=== PATIENT | male | born 1970 | race Caucasian/White ===

== ENCOUNTER 2017-06-27 12:24 | Day surgery (SDC) | payer OTHER ==
[2017-06-23 10:43] LABS: BASO % 0.6 %; BASO ABS # 0.04 K/uL (0-0.2); COMPLETE YES; EOS % 4.9 %; HEMATOCRIT 49.5 % (42-52); IG% 0.2 %; LYMPH % 40.6 %; MEAN CELL VOLUME 85.1 fL (80-100); MEAN CORPUSCULAR HEMOGLOBIN 28.7 pg (25-34); MEAN CORPUSCULAR HGB CONC 33.7 g/dl (32-36); MEAN PLATELET VOLUME 12.1 fL (7.4-10.4); MONO % 9.6 %; NEUT % 44.1 %; PLATELET COUNT 187 K/uL (130-400); RED BLOOD COUNT 5.82 M/uL (4.7-6.1); WHITE BLOOD COUNT 6.16 K/uL (4.8-10.8)
[2017-06-23 11:18] LABS: BLOOD UREA NITROGEN 17 mg/dl (7-18); CALCIUM 9.2 mg/dl (8.5-10.1); CARBON DIOXIDE 27 mmol/L (21-32); CHLORIDE 104 mmol/L (98-107); CREATININE 1.07 mg/dl (0.60-1.40); GLUCOSE 83 mg/dl (70-99); POTASSIUM 3.7 mmol/L (3.5-5.1); SODIUM 139 mmol/L (136-145)
[2017-06-24 15:23] VITALS: BMI 33.0
--- NOTE | 2017-06-26 18:48 | HISTORY & PHYSICAL EXAMINATION ---
DATE OF ADMISSION: 06/27/2017 HISTORY AND PHYSICAL ADMISSION NOTE CHIEF COMPLAINT: High grade partial thickness left rotator cuff tear. HISTORY OF PRESENT ILLNESS: Eduard is a pleasant 47-year-old male who injured his left shoulder about 3 months ago while working on a vehicle for [employer]. MRI showed a very high grade partial thickness rotator cuff tear. After failing conservative treatment including injections, he elected to proceed with arthroscopy. PAST MEDICAL HISTORY: Significant for asthma and chronic sinusitis. PAST SURGICAL HISTORY: Significant for sinus surgeries, hiatal hernia repair, lymph nodes excision. ALLERGIES: None. MEDICATIONS: Include ranitidine, Nasonex, TobraDex, Protonix and desonide. FAMILY HISTORY: Noncontributory. SOCIAL HISTORY: He is . He has 1 or 2 drinks a day. Denies any alcohol or IV drug use. Moderately active and has 3 kids. REVIEW OF SYSTEMS: He complains of left shoulder pain. All other pertinent review of systems is negative. PHYSICAL EXAMINATION: GENERAL: He is awake, alert and oriented x3. He is in no apparent distress. He is very pleasant. HEENT: Pupils are equal, round and reactive to light. Extraocular motion intact. Oral mucosa is pink and moist. HEART: Regular rate per radial pulse. LUNGS: Snow symmetrically bilaterally with no audible breath sounds. ABDOMEN: Soft, nontender, nondistended. MUSCULOSKELETAL: On physical examination of the left shoulder, he has full active range of motion. He has 4+/5 muscle strength with a full can testing, 5/5 muscle strength with external rotation. Negative bear hug test. He has tenderness to palpation in the far anterior lateral subacromial space. No AC joint pain. Very mild biceps tenderness. IMAGING DATA: MRI reviewed of the shoulder does show a high grade interstitial tear of the far anterior supraspinatus. IMPRESSION: Left supraspinatus tendon tear. PLAN: Will proceed with arthroscopy to include small rotator cuff repair and acromioplasty. Postoperatively, he will be placed in an arm sling, given oral pain medications and discharged to home.
[~2017-06-27] VITALS: Ht 185.4 cm; Wt 115.9 kg
[~2017-06-27 12:24] MED LIST: ACETAMINOPHEN 500 MG TAB PO SCH; AFRINWC NAE; BUPIVACAINE 0.5 % 5 MG/1 ML PF 10ML VIAL ONE; CEFAZOLIN 2000MG IV PUSH 10 ML IV SCH; CLONIDINE HCL 100 MCG/ML SYRINGE ONE; CLOT1CRE TOP; DEXAMETHASONE SOD INJ 4 MG/ML VIAL ONE; FLUT0.15 INTNAS; IBUP-1459 PO; LACTATED RINGER'S 1000ML 1,000 ML IV SCH; LACTATED RINGER'S 1000ML IV SCH; PHEN-905 PO; PSEU30TA20 PO; ROPIVACAINE 0.5% 5 MG/ML 30 ML VIAL ONE; SALI0.6510 INTNAS; VNTHFA/IN INH; ZNTT/150 PO
[2017-06-27] MEDS ORDERED: TYLOTC500 PO (12:44)
[2017-06-27 12:51] VITALS: BP 154/98; PULSE 59; TEMP 36.6; O2SAT 97; Ht 185.4 cm; Wt 115.9 kg
[2017-06-27] MEDS ORDERED: MIDAZOLAM HCL 1 MG/ML 2ML VIAL ONE ×2 (14:42→15:14)
--- NOTE | 2017-06-27 14:57 | History & Physical Bridge Note ---
H&P Re-Evaluation Bridge Note: I have examined the patient, reviewed the History & Physical and in the interval since the performance of the History & Physical I have noted the following changes of clinical significance: No changes noted
[2017-06-27] MEDS ORDERED: FENTANYL CITRATE INJ 50 MCG/1 ML 2 ML VIAL ONE (15:14)
[2017-06-27] MEDS ORDERED: DEXAMETHASONE SOD INJ 4 MG/ML VIAL ONE (16:02)
[2017-06-27] MEDS ORDERED: ONDANSETRON INJ 2 MG/ML 2 ML VIAL ONE (16:02)
[2017-06-27] MEDS ORDERED: PROPOFOL IV EMULSION 10 MG/ML 20 ML VIAL IV ONE ×2 (16:02→16:58)
[2017-06-27] MEDS ORDERED: LIDOCAINE HCL 2% 2 ML VIAL (20MG/ML) ONE (16:02)
[2017-06-27] MEDS ORDERED: NEOSTIGMINE METHYLSULFATE 5 MG/5 ML SYR ONE (16:02)
[2017-06-27] MEDS ORDERED: GLYCOPYRROLATE INJ 0.2 MG/ML VIAL ONE (16:02)
[2017-06-27] MEDS ORDERED: ROCURONIUM BROMIDE 10 MG/ML 5 ML VIAL IV ONE (16:08)
[2017-06-27] MEDS ORDERED: EpHEDrine SULFATE INJ 50 MG/ML AMP IV PRN (16:30)
[2017-06-27] MEDS ORDERED: ONDANSETRON INJ 2 MG/ML 2 ML VIAL IV PRN ×2 (16:30→17:45)
[2017-06-27] MEDS ORDERED: NALOXONE HCL 0.4 MG/1 ML VIAL/CARP IV PRN (16:30)
[2017-06-27] MEDS ORDERED: PROMETHAZINE HCL INJ 12.5 MG in SODIUM CHLORIDE 0.9% 50ML 50 ML IV PRN (16:30)
[2017-06-27] MEDS ORDERED: FLUMAZENIL 0.1 MG/1 ML 10 ML VIAL IV PRN (16:30)
[2017-06-27] MEDS ORDERED: ATROPINE SULFATE 0.1 MG/ML 5ML SYR IV PRN (16:30)
[2017-06-27] MEDS ORDERED: EpINEphrine HCL INJ 1 MG/ML 5ML SYRINGE IRRIG ONE (16:47)
[2017-06-27] MEDS ORDERED: BUPIVACAINE/EPINEPHRINE 0.25% 1:200,000 30 ML VIAL INJ ONE (17:37)
[2017-06-27] MEDS ORDERED: KETO10TA PO (17:41)
[2017-06-27] MEDS ORDERED: OXYC-57 PO (17:41)
[2017-06-27] MEDS ORDERED: SODIUM CHLORIDE 0.9% 1000ML 1,000 ML IV SCH (17:43)
--- NOTE | 2017-06-27 17:43 | Discharge Instructions ---
Discharge Instructions Date of Service Jun 27, 2017. Admission Reason for Admission: Rotator Cuff Tear Discharge Discharge Diagnosis / Problem: SAME ABOVE Discharge Goals Goal(s): Decrease discomfort, Improve function Activity Recommendations Activity Limitations: as noted below Lifting Limitations: until after follow-up appointment Exercise/Sports Limitations: until after follow-up appointment Shower/Bathe: tomorrow . Instructions / Follow-Up Instructions / Follow-Up MEDICATIONS: * Resume previous medications unless instructed otherwise by your surgeon. * Always take pain medication on a full stomach or with food to avoid upset stomach. * Do not drink alcohol or drive while taking narcotics. * Ibuprofen or Tylenol may be taken if narcotic not needed. SPECIAL CARE INSTRUCTIONS: __ None _X_ Keep extremity elevated and iced x 48 hours; apply ice 20-30 minutes 8-10 times/day. May remove at night. __ Sling __24 hrs/day __ Remove at night _X_ Shoulder Immobilizer (MAY REMOVE AFTER 48 HOURS ONLY TO SHOWER) _X_ 24 hrs/day __ Remove at night _X_ Dressing __ Maintain until seen in office, may shower with plastic over site _X_ Remove dressings in 24-48 hours and then may shower _X_ Cover incisions with band-aids after showering _X_ Do not remove steri-strips Call physician if chills or temperature rises above 102 degrees or pain unrelieved by prescribed pain medications at . . Current Hospital Diet Patient's current hospital diet: Discharge Diet Recommended Diet: Regular Diet Fluid Restriction: None Procedures Procedures Performed: Left Shoulder Arthroscopy Medium Rotator Cuff Repair, Acromioplasty, open biceps tenodesis Pending Studies Studies pending at discharge: no Work Instructions Return To Work: after follow-up Medical Emergencies . Who to Call and When: Medical Emergencies: If at any time you feel your situation is an emergency, please call 911 immediately. . Non-Emergent Contact Non-Emergency issues call your: Primary Care Provider Call Non-Emergent contact if: you have a fever, temperature is above 101.5 . "Provider Documentation" section prepared by Matthew Patel. . VTE Core Measure Inpt VTE Proph given/why not?: Treatment not indicated
[2017-06-27] MEDS ORDERED: OXYCODONE/ACETAMINOPHEN 5-325 TAB PO PRN ×2 (17:45)
[2017-06-27] MEDS: HYDROmorphone INJ 2 MG/ML SYR/VIAL IV PRN ×4 (18:10→18:25)
--- NOTE | 2017-06-27 18:20 | OPERATIVE REPORT ---
DATE OF OPERATION: 06/27/2017 PREOPERATIVE DIAGNOSES: Left shoulder rotator cuff tear and biceps tendinopathy. POSTOPERATIVE DIAGNOSES: Same. PROCEDURE: Left shoulder diagnostic arthroscopy with limited debridement, acromioplasty, medium size crescent-shaped rotator cuff repair and open subpectoral biceps tenodesis. SURGEON: Dr. Bradley Leroy. YEAST FERMENTATION ATTENDANT: Rex Patel PA-C, whose assistance was necessary for positioning of the arm and helping with instrumentation. ANESTHESIA: General with a left interscalene nerve block. COMPLICATIONS: None. CONDITION: Stable to PACU. INDICATIONS: Reji is a pleasant 47-year-old male, who injured his left shoulder about 3 months ago while working on a vehicle for [employer]. MRI and clinical examination were diagnostic for rotator cuff tear and biceps tendinopathy. After failing conservative treatment, he elected to undergo arthroscopy. DESCRIPTION OF PROCEDURE: On 06/27/2017, he arrived at [facility] for the above procedure. He was seen in the preoperative holding area and the operative extremity was identified and signed. He was given appropriate antibiotics and a left interscalene nerve block. He was taken back to the operating room, laid on the table in the supine position and put under general anesthesia. He was put into the beachchair position. Left shoulder was prepped and draped in sterile fashion. Time-out was done and the patient and operative extremity was properly identified. A scope was introduced in the posterior portal. Diagnostic arthroscopy showed no cartilage damage to the humeral head or the glenoid. A little fraying of the anterior labrum. The biceps tendon was very frayed. There was no tearing of the subscapularis. There was a tear of the entire supraspinatus. The infraspinatus, teres minor and subscapularis were intact. An anterior portal was made. A shaver was used to do a limited debridement of the intraarticular structures and the biceps tendon was arthroscopically tenotomized. The scope was then put into the subacromial space. A lateral portal was made. A shaver was used to do a complete subacromial and subdeltoid resection. An ablator was used to tease the coracoacromial ligament off the undersurface of the acromion and a 5-0 susu was used to complete an acromioplasty of a Bigliani type 2 acromion. A shaver was used to remove any excess debris and the bursal side of the rotator cuff was examined extensively. An additional anterolateral portal was made and Ronna cannulas were placed in each of the lateral portals. The rotator cuff tear was completed. It was a medium size crescent-shaped tear. The greater tuberosity was prepared with a ring curette and a microfracture. The rotator cuff was then fixed with an Arthrex SpeedBridge configuration using 4.75-mm BioComposite SwiveLock suture anchors and FiberTapes. This gave a nice knotless SpeedBridge repair. Multiple pictures were taken. The scope was put back into the glenohumeral joint and the articular margin of the rotator cuff had been restored. Arthroscopic instruments were removed from the shoulder. Attention was turned to an open biceps tenodesis. A small incision was made over the inferior border of the pec major. Dissection was taken down through the fascia and the long head of the biceps tendon was delivered out of the wound. The tendon was then whipstitched at the anticipated level of tenodesis and the remainder of the tendon was discarded. A 6-mm hole was drilled in the bicipital groove and the biceps tendon was tenodesed with an Arthrex biceps button that was passed through the posterior cortex and flipped in a tension slide technique to deliver the tendon into the 6-mm hole. This gave good fixation. The tails were then tied. The wound was then irrigated and closed with 3-0 Vicryl and running 3-0 Monocryl. Steri-strips were placed. Portal sites were closed with 3-0 nylon. He was then placed in a soft dressing and abduction arm sling. He was then extubated, transferred to a [facility] and taken to the postanesthesia care unit in stable condition. He tolerated the procedure well. I attest to the content of the Intraoperative Record and any orders documented therein. Any exception s are noted below.
--- NOTE | 2017-06-27 18:45 | Anesthesiology Progress Note ---
Anesthesia Post Op Note Date & Time Jun 27, 2017 at 18:44 Vital Signs Pain Intensity: 4 Vital Signs Past 12 Hours Date Time Temp Pulse Resp B/P (MAP) Pulse Ox O2 Delivery O2 Flow Rate FiO2 06/27/17 18:40 63 13 136/86 92 Room Air 06/27/17 18:30 59 14 144/88 94 Room Air 06/27/17 18:20 36.1 59 15 174/74 98 Room Air 06/27/17 18:10 57 16 159/87 98 Oxymask 8 06/27/17 18:00 56 16 140/83 98 Oxymask 8 06/27/17 17:50 66 15 140/76 98 Oxymask 8 06/27/17 17:41 37 62 16 139/74 96 Oxymask 8 06/27/17 12:51 36.6 59 18 154/98 (116) 97 Room Air Notes Mental Status: alert / awake / arousable, participated in evaluation Pt Amnestic to Procedure: Yes Nausea / Vomiting: adequately controlled Pain: adequately controlled Airway Patency, RR, SpO2: stable & adequate BP & HR: stable & adequate Hydration State: stable & adequate Anesthetic Complications: no major complications apparent
[2017-06-27 18:46] VITALS: BP 140/83; PULSE 57; TEMP 36.4; O2SAT 95
[2017-06-27 19:15] VITALS: BP 146/89; PULSE 64; TEMP 36.8; O2SAT 93
[2017-06-27 19:40] VITALS: BP 153/88; PULSE 88; TEMP 36.4; O2SAT 95
--- NOTE | 2017-06-27 22:47 | [facility] Post Operative Brief Note ---
Immediate Operative Summary Operative Date Jun 27, 2017. Pre-Operative Diagnosis Left supraspinatus tendon tear Post-Operative Diagnosis Left supraspinatus tendon tear Procedure(s) Performed Left Shoulder Arthroscopy Medium Rotator Cuff Repair, Acromioplasty, open biceps tenodesis Surgeon Dr. Leroy [place] [employer] Surgeon(s) Rex Patel PA-C Estimated Blood Loss 5ml Findings as above Specimens None Complication(s) None Disposition Recovery Room / PACU
== END 2017-06-27 19:57 | disposition home or self-care (01) ==
LOC: C.ACU 12:24
PROVIDERS: ATTEND Orthopaedic Surgery
DX: S46.012A Strain of muscle(s) and tendon(s) of the rotator cuff of left shoulder, initial encounter (principal); M75.22 Bicipital tendinitis, left shoulder; X58.XXXA Exposure to other specified factors, initial encounter; Y93.9 Activity, unspecified; J45.909 Unspecified asthma, uncomplicated; M10.9 Gout, unspecified; E66.9 Obesity, unspecified; Z98.890 Other specified postprocedural states; Z68.34 Body mass index [BMI] 34.0-34.9, adult